=== PATIENT | female | born 1960 | race Caucasian/White ===

== ENCOUNTER 2022-09-16 19:18 | Inpatient (IN) | payer OTHER ==
[~2022-09-16] VITALS: Ht 172.7 cm; Wt 113.4 kg
[2022-09-16] MEDS ORDERED: methylPREDNISolone SS 125 MG/2 ML VIAL IVP ONE (19:25)
[2022-09-16] MEDS ORDERED: EPINEPHrine 1 MG/ML AMP IM ONE (19:25)
[2022-09-16] MEDS ORDERED: NACL 0.9% 1,000 ML IV ONE ×2 (19:25→20:40)
--- NOTE | 2022-09-16 19:25 | NUR ---
PT OFFLOADED TO BED 3
[2022-09-16 19:28] VITALS: BP 87/51
--- NOTE | 2022-09-16 19:31 | NUR ---
PT IS HERE FOR NAUSEA AND VOMIITTING X 2 WITH HYPOTENSIVE.
[2022-09-16] MEDS ORDERED: NACL 0.9% 1,000 ML IV SCH (19:40)
--- NOTE | 2022-09-16 19:40 | NUR ---
new iv was created R ac 18 gauge
--- NOTE | 2022-09-16 20:00 | NUR ---
Sukhjinder Dodson at the bedside came to visit the patient.
[2022-09-16 20:02] LABS: BASOPHILS % (AUTO) 0.3 % (0.0-2.0); EOSINOPHILS # (AUTO) 0.1 K/uL (0-0.4); EOSINOPHILS % (AUTO) 0.6 % (0.0-4.0); HEMATOCRIT 50.8 % (36-48); HEMOGLOBIN 16.8 g/dL (12.0-16.0); LYMPHOCYTES # (AUTO) 1.4 K/uL (2.5-16.5); MEAN CORPUSCULAR HEMOGLOBIN 31 pg (27-31); MEAN CORPUSCULAR HGB CONC 33 g/dL (33-37); MEAN CORPUSCULAR VOLUME 92.7 fL (80-94); MONOCYTES # (AUTO) 0.7 K/uL (0.8-1.0); MONOCYTES % (AUTO) 4.6 % (1.7-9.3); NEUTROPHILS # (AUTO) 13.4 K/uL (1.8-7.7); NEUTROPHILS % (AUTO) 85.5 % (42.2-75.2); PLATELET COUNT (AUTO) 359 K/uL (140-450); RED BLOOD CELL COUNT(AUTO) 5.48 MIL/uL (4.20-5.40); RED CELL DISTRIBUTION WIDTH 13.3 % (11.6-13.7); WHITE BLOOD COUNT (AUTO) 15.7 K/uL (4.8-10.8)
[2022-09-16 20:26] LABS: ALBUMIN 3.4 g/dL (3.4-5.0); ANION GAP 15.9 (8-16); CARBON DIOXIDE 24.6 mmol/L (21-32); CREATININE 2.3 mg/dL (0.6-1.3); POTASSIUM 4.5 mmol/L (3.5-5.1); TOTAL BILIRUBIN 0.5 mg/dL (0.0-1.0)
[2022-09-16] MEDS ORDERED: cefTRIAXone 2,000 MG in DEXTROSE 5% 100 ML IV ONE (20:40)
--- NOTE | 2022-09-16 20:40 | NUR ---
2039 lab called for lactic 2.4
[2022-09-16] MEDS ORDERED: cefTRIAXone 2,000 MG VIAL ONE (20:50)
[2022-09-16] MEDS ORDERED: NACL 0.9% 500 ML IV ONE (21:05)
[2022-09-16] MEDS ORDERED: CARV6.25 PO (21:32)
[2022-09-16] MEDS ORDERED: TOPI50TA PO (21:32)
[2022-09-16] MEDS ORDERED: TOP25 PO (21:32)
[2022-09-16] MEDS ORDERED: LEVE750T25 PO (21:32)
[2022-09-16] MEDS ORDERED: LEVO50CA2 PO (21:32)
[2022-09-16] MEDS ORDERED: levETIRAcetam 1,000 MG in NACL 0.9% 100 ML IV ONE (22:55)
[2022-09-16 22:59] LABS: APPEARANCE,URINE HAZY (CLEAR); BILIRUBIN,URINE NEGATIVE (NEGATIVE); BLOOD, URINE 3+ (NEGATIVE); COLOR,URINE YELLOW (YELLOW); LEUKOCYTE ESTERASE ,URINE TRACE (NEGATIVE); NITRITE, URINE NEGATIVE (NEGATIVE); UGLUCOSE NEGATIVE (NEGATIVE)
[2022-09-16] MEDS ORDERED: levETIRAcetam 100 MG/ML VIAL IV ONE (23:05)
[2022-09-16 23:26] LABS: HYALINE CASTS, URINE 0-10 /LPF (None Seen); RBC,URINE 11-20 (MOD) /HPF (0-5)
[2022-09-17] MEDS ORDERED: diphenhydrAMINE 50 MG/ML VIAL IVP PRN (05:45)
[2022-09-17] MEDS ORDERED: ZOLPIDEM 5 MG TAB PO PRN (10:05)
[2022-09-17] MEDS ORDERED: ACETAMINOPHEN 325 MG TAB PO PRN (10:05)
[2022-09-17] MEDS ORDERED: POTASSIUM CHLORIDE 10 MEQ TABER PO PRN (10:05)
[2022-09-17] MEDS ORDERED: ONDANSETRON 4 MG/2 ML VIAL IM/IVP PRN (10:05)
[2022-09-17] MEDS ORDERED: DOCUSATE SODIUM 100 MG GELCAP PO PRN (10:05)
[2022-09-17] MEDS ORDERED: HYDROcodone/APAP 7.5/325 MG 1 TAB PO PRN (10:05)
[2022-09-17] MEDS ORDERED: guaiFENesin DM 200/20 MG-10 ML 10 ML UDC PO PRN (10:05)
[2022-09-17] MEDS: NACL 0.9% 1,000 ML IV SCH ×2 (11:06→18:37)
--- NOTE | 2022-09-17 11:07 | NUR ---
Communicated with admitting MD through [employer] text. MD gave okay for pt to take home medications.
[2022-09-17 11:11] LABS: PROTHROMBIN TIME 9.7 secs (10.8-13.4)
[2022-09-17 11:57] LABS: CHOL/HDL RATIO 3.3 (1-4.5); FREE T4 (FREE THYROXINE) 0.83 ng/dL (0.76-1.46); MAGNESIUM 2.3 mg/dL (1.8-2.4); THYROID STIMULATING HORMONE 1.48 uIU/mL (0.34-3.74)
--- NOTE | 2022-09-17 12:00 | NUR ---
Pt complained of intolerable itching pain. Pt requested pain medication. Medicated as ordered. Pt tolerating well. Pt resting in bed with son at bedside.
[2022-09-17] MEDS ORDERED: LEVETIRACETAM PO SCH (17:00)
--- NOTE | 2022-09-17 20:30 | NUR ---
RECEIVED REPORT FROM ER NURSE MACARIO FOR CONTINUITY OF CARE. PATIENT IS A&O X4. PATIENT IS ON ROOM AIR, BREATHING IS NORMAL WITH SYMMETRICAL RISE AND FALL OF CHEST. IV IS A 18G RAC, RUNNING NS 120. PATIENT IS ABLE TO AMBULATE INDEPENDENTLY. PATIENT STATES THAT SHE NEEDS SOME TIME TO REST BEFORE WE DO ANYTHING, STATING THAT THEY MOVED HER TO A DIFFERENT ROOM IN THE ER AND SHE CAME INTO CONTACT WITH SOMETHING. SPOKE TO NURSE MACARIO ABOUT THIS IN THE WONG; HE INFORMED ME THAT HE DOESN'T KNOW WHAT SHE'S TALKING ABOUT. SHE WASN'T MOVED AND SHE DIDN'T COME INTO CONTACT WITH ANYTHING IN THE ER. I HOOKED PATIENT UP TO THE IV AND SHOWED HER HOW TO USE THE CALL LIGHT. I INSTRUCTED HER TO CALL US IF SHE NEEDS ANYTHING AND REMINDED HER THAT SHE IS HOOKED UP TO THE IV. PATIENT IS LYING IN HIGH-FOWLERS POSITION IN BED, BED IS IN LOWEST POSITION, WHEELS LOCKED, CALL LIGHT IN PLACE. WILL CONTINUE TO OBSERVE PATIENT.
[2022-09-17] MEDS ORDERED: TOPIRAMATE 25 MG TAB PO SCH (21:00)
[2022-09-17] MEDS ORDERED: levETIRAcetam 500 MG TAB PO SCH (21:00)
[2022-09-17] MEDS ORDERED: carvediloL 6.25 MG TAB PO SCH (21:00)
[2022-09-17 21:36] VITALS: BP 140/71
--- NOTE | 2022-09-17 21:36 | NUR ---
2100 MEDICATIONS: TOPAMAX, COREG, AND KEPPRA WERE NOT ADMINISTERED TO PATIENT BECAUSE PATIENT HAD THESE MEDICATIONS FROM HOME WITH HER AND INFORMED ME THAT SHE JUST TOOK THEM A FEW MINUTES AGO JUST BEFORE SHE LEFT THE EMERGENCY ROOM. ASKED PATIENT FOR THEIR MEDICATION BAG SO IT CAN BE SENT TO THE PHARMACIST FOR RECONCILIATION. PATIENT DID NOT WANT BAG TO GO TO PHARMACY AND ASKED TO KEEP IT. I INFORMED HER THAT WE CAN'T KEEP IT AT THE BEDSIDE BECAUSE IT WILL BECOME CONFUSING AND CONFLICT WITH THE MEDICATIONS WE HAVE TO GIVE HER. PATIENT REQUESTED THAT WE HOLD THE MEDICATIONS SO HER FAMILY CAN PICK THEM UP IN THE MORNING. CHECKED WITH CHARGE NURSE AMY, WHO SAID THAT WOULD BE OKAY. TOOK PATIENT'S MEDICATION BAG TO THE NURSING STATION FOR HER FAMILY TO SPECIAL NEEDS BUS DRIVER IN THE MORNING.
--- NOTE | 2022-09-17 21:38 | NUR ---
Patient will be admitted to care of [facility]. Admited to telemetry . Will go to room 119 B. Belongings list completed. Report to
--- NOTE | 2022-09-17 22:15 | NUR ---
PATIENT PULLED OUT IV. WENT INTO ROOM, PATIENT HAD BLED ON THE BLANKETS, SHEET, ON THE FLOOR, AND GOWN. CLEANED PATIENT'S ARM AND APPLIED A GAUZE BANDAGE TO WHERE THE IV SITE LOCATION (RAC). PATIENT WAS EMOTIONAL AND APOLOGETIC; STATING I DID NOT REALIZE I HAD ANYTHING HOOKED UP TO ME. PATIENT HAD BEEN INFORMED OF THE IV BEING HOOKED UP TO HER WHEN SHE ARRIVED ON THE UNIT AND WATCHED ME HOOK HER UP TO THE IV. PATIENT WAS GIVEN A NEW GOWN, AND NEW BLANKET AND SHEET. I WIPED DOWN THE SIDE OF THE BED AND FLOOR; EVS CAME AND CLEANED THE FLOOR ALSO. PATIENT IS NOW BACK IN BED. WILL CONTINUE TO OBSERVE PATIENT.
--- NOTE | 2022-09-17 23:10 | NUR ---
PATIENT CAME OUT OF ROOM AND INSISTED ON GOING HOME. PATIENT SAID IT'S NOT YOU GUYS, I JUST WANT TO LEAVE. CHARGE NURSE AMY EXPLAINED TO PATIENT THE IMPORTANCE OF STAYING SO SHE CAN CONTINUED TO BE OBSERVED AND CARED FOR. PATIENT STILL REFUSED TO STAY. IT WAS ALSO EXPLAINED TO PATIENT THAT IF SHE WENT AMA, THE HOSPITAL WOULD NOT BE RESPONSIBLE FOR ANYTHING THAT HAPPENS. SHE STATED SHE UNDERSTOOD, AND STILL WANTED TO LEAVE AMA. PATIENT CALLED HER SON; I ALSO SPOKE WITH HER SON ABOUT THE NAME OF THE UNIT [[facility] AND THAT HE CAN PULL THE CAR UP TO THE FRONT AND WE WOULD BRING HER TO THE CAR, WHEN HE CALLED HER CELL PHONE. AFTER HANGING UP WITH THE SON, PATIENT SIGNED AMA PAPERS. PATIENT STATED THAT SHE HAD A PAIR OF SHOES AND A SHIRT WHEN SHE ARRIVED IN THE ER. CALLED THE ER AND ASKED JAN ABOUT HER SHOES AND SHIRT. SHE TOLD ME THAT HER SON WAS THERE LAST NIGHT AND TOOK THOSE ITEMS. I INFORMED THE PATIENT OF THIS; SHE SAID THAT'S NOT TRUE, BUT NEVER MIND. PATIENT THEN WANTED TO KNOW WHERE SHE CAN WAIT. CHARGE NURSE REYES AND I TOLD HER SHE CAN WAIT IN HER ROOM; PATIENT HEADED TO ROOM BUT THEN CAME BACK SAYING SHE DID NOT WANT TO WAIT IN THERE. SHE ASKED TO BE TAKEN TO ANOTHER AREA OF THE HOSPITAL. SHE ALSO REQUESTED TO TAKE THE TELE BOX WITH HER SO SHE CAN SHOW IT TO HER SON. WE EXPLAINED TO HER THAT THE TELE BOX WAS USED TO MONITOR HER HEART AND IT NEEDED TO STAY HERE. SHE INSISTED ON KEEPING IT, BUT FINALLY REQUESTED TO HAVE A PICTURE OF IT SO SHE CAN SHOW HER SON. CHARGE NURSE REYES AND I TOOK A PICTURE OF IT WITH THE PATIENT'S PHONE, SINCE SHE DIDN'T KNOW HOW TO USE HER PICTURE CHE. I THEN ESCORTED THE PATIENT TO THE LOBBY, DURING WHICH TIME PATIENT KEPT INSISTING THAT I TAKE HER DOWN TO THE NEXT FLOOR. I EXPLAINED TO HER THAT THIS WAS A [facility], AND THIS WAS THE ONLY FLOOR. PATIENT THEN GOT AGITATED STATING, "i'VE BEEN HERE FOR DAYS, I KNOW THERE'S TO FLOORS. TAKE ME TO THE BOTTOM FLOOR". I TOLD HER, THAT THIS IS THE BOTTOM FLOOR; AT WHICH POINT WE REACHED THE LOBBY. I SHOWED HER THE ENTRANCE DOOR THAT SHE WOULD EXIT AND WHERE HER SON CAN PULL UP TO THE FRONT. I ALSO TOLD HER TO HAVE A SEAT AND SHE CAN WAIT FOR HER SON TO ARRIVE. I INFORMED THE LADY AT THE EGG PRODUCER THAT SHE WAS WAITING FOR HER SON AND DID NOT WANT TO WAIT IN THE ROOM. THE LADY AT THE DESK SAID SHE WOULD KEEP AN EYE ON HER. I HEADED BACK TO THE UNIT.
[2022-09-18] MEDS ORDERED: LEVOTHYROXINE 0.05 MG TAB PO SCH (06:30)
[2022-09-18 08:06] LABS: T4 (THYROXINE) 6.2 ug/dL (4.5-12.0)
[2022-09-18] MEDS ORDERED: PANTOPRAZOLE 40 MG TABEC PO SCH (09:00)
[2022-09-18] MEDS ORDERED: TOPIRAMATE 25 MG TAB PO SCH (09:00)
== END 2022-09-17 23:10 | disposition left against medical advice (07) | DRG 871 ==
LOC: MED 19:18 → MTU 09-17 05:22
PROVIDERS: ADMIT Family Medicine; ATTEND Family Medicine
DX: A41.9 Sepsis, unspecified organism (principal); N17.0 Acute kidney failure with tubular necrosis; I69.351 Hemiplegia and hemiparesis following cerebral infarction affecting right dominant side; N39.0 Urinary tract infection, site not specified; E11.9 Type 2 diabetes mellitus without complications; I10 Essential (primary) hypertension; Z20.822 Contact with and (suspected) exposure to COVID-19; G40.909 Epilepsy, unspecified, not intractable, without status epilepticus; E86.0 Dehydration; E03.9 Hypothyroidism, unspecified; Z88.0 Allergy status to penicillin
CPT/HCPCS: 36415; 71045; 71250; 76770; 80053; 81001; 82150; 83036; 83605; 83690; 83735; 83880; 84100; 84436; 84439; 84443; 84479; 84484; 85025; 85610; 85730; 87040; 87081; 87086; 93005; 96372; 96374; 96375; 99291; J0171; J0696; J1200; J1953; J2930; Q0092